=== PATIENT | female | born 1965 | race Caucasian/White ===

== ENCOUNTER → 2021-10-04 | Outpatient (CLI) | payer BC ==
[~2021-10-04] MED LIST: HYDACE5 PO; PRAVASTATIN SOD10 MG PO; PROM25 PO; RXHYDACE PO
== END ==
LOC: PLD 08:15 → LAB SHORT 08:15
DX: L82.1 Other seborrheic keratosis (principal)
CPT/HCPCS: 88305

== ENCOUNTER 2022-10-18 21:31 | Emergency (ER) | payer BC ==
[~2022-10-18] VITALS: Ht 160 cm; Wt 63.5 kg
[2022-10-18 21:44] VITALS: BP 120/81
== END 2022-10-19 00:18 | disposition home or self-care (01) ==
LOC: ER 21:31
DX: S01.412A Laceration without foreign body of left cheek and temporomandibular area, initial encounter (principal); W50.0XXA Accidental hit or strike by another person, initial encounter; Z79.899 Other long term (current) drug therapy
CPT/HCPCS: 99282

== ENCOUNTER → 2023-04-07 | Outpatient (CLI) | payer BC ==
[2023-04-08 14:11] LABS: Stool Occult Bld Immuno 1 Negative (NEGATIVE)
== END ==
LOC: LAB SHORT 08:00
PROVIDERS: Internal Medicine
DX: R10.9 Unspecified abdominal pain (principal); R19.5 Other fecal abnormalities
CPT/HCPCS: 82274

== ENCOUNTER → 2023-04-08 | Outpatient (CLI) | payer BC ==
[2023-04-11 23:43] LABS: CALPROTECTIN,FECAL 13 ug/g (<=49)
== END ==
LOC: LAB SHORT 09:00
PROVIDERS: Internal Medicine
DX: R19.5 Other fecal abnormalities (principal)
CPT/HCPCS: 83993

== ENCOUNTER 2024-04-04 12:29 | Day surgery (SDC) | payer BC ==
[~2024-04-04] VITALS: Ht 157.5 cm; Wt 64.1 kg
[~2024-04-04 12:29] MED LIST changes: +Lactated Ringer's 1,000 ML IV ONE; +propofoL 50 ML IV ONE
[2024-04-04] MEDS ORDERED: OMEP20ER (12:51)
[2024-04-04] MEDS ORDERED: Vitamin D1000 UNI1 (12:51)
[2024-04-04] MEDS ORDERED: PROBIOTIC1 EA14 (12:52)
[2024-04-04] MEDS ORDERED: [UNRECOGNIZED DRUG - OTHER] (12:52)
[2024-04-04] MEDS ORDERED: POLY500 (12:52)
[2024-04-04] MEDS ORDERED: Lactated Ringer's 1,000 ML IV ONE (14:35)
[2024-04-04 16:48] VITALS: BP 105/77
== END 2024-04-04 16:43 | disposition home or self-care (01) ==
LOC: ORSCSDS 12:29
PROVIDERS: Internal Medicine Gastroenterology
PROC: 0DJD8ZZ Inspection of Lower Intestinal Tract, Via Natural or Artificial Opening Endoscopic (ICD-10-PCS; principal; 2024-04-04 14:15)
PROC: 0DB98ZX Excision of Duodenum, Via Natural or Artificial Opening Endoscopic, Diagnostic (ICD-10-PCS; principal; 2024-04-04 14:15)
PROC: 0DB68ZX Excision of Stomach, Via Natural or Artificial Opening Endoscopic, Diagnostic (ICD-10-PCS; principal; 2024-04-04 14:15)
DX: R10.13 Epigastric pain (principal); R14.0 Abdominal distension (gaseous); K57.30 Diverticulosis of large intestine without perforation or abscess without bleeding; K64.4 Residual hemorrhoidal skin tags; Z12.11 Encounter for screening for malignant neoplasm of colon; E78.5 Hyperlipidemia, unspecified; Z79.899 Other long term (current) drug therapy
CPT/HCPCS: 88305; 88342; J2704; J7120